=== PATIENT | female | born 2000 | race Hispanic/Latino ===

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

== ENCOUNTER 2019-11-10 12:51 | Emergency (ER) | payer MEDICAID ==
[2019-11-10] MEDS ORDERED: ACETAMINOPHEN EXTRA STRENGTH 500 MG TABLET ONE (13:16)
[2019-11-10] MEDS ORDERED: SODIUM CHLORIDE 0.9% 1000ML 1,000 ML IV ONE (13:17)
[2019-11-10] MEDS ORDERED: ONDANSETRON ODT 4 MG TAB ONE (13:32)
[2019-11-10 13:51] LABS: APPEARANCE,URINE CLEAR (CLEAR); BILIRUBIN,URINE NEGATIVE (NEGATIVE); COLOR,URINE YELLOW (YELLOW); GLUCOSE, URINE (UA) NEGATIVE (NEGATIVE); KETONES,URINE NEGATIVE (NEGATIVE); LEUKOCYTE ESTERASE ,URINE NEGATIVE (NEGATIVE); NITRATE,URINE NEGATIVE (NEGATIVE); OCCULT BLOOD,URINE NEGATIVE (NEGATIVE); PH,URINE 5.5 (5.0-8.0); PROTEIN,URINE TRACE mg/dL (NEGATIVE); UROBILINOGEN,URINE 0.2 mg/dL (0.2-1.0)
[2019-11-10 13:57] LABS: HCG,QUAL RESULT NEGATIVE (NEGATIVE)
[2019-11-10 14:57] LABS: BACTERIA,URINE Rare /HPF (None Seen); RBC,URINE None Seen /HPF (0-1); WBC,URINE 0-1 /HPF (0-1)
== END 2019-11-10 15:09 | disposition home or self-care (01) ==
LOC: EDH 12:51
DX: J11.1 Influenza due to unidentified influenza virus with other respiratory manifestations (principal)
CPT/HCPCS: 71046; 81001; 81025; 87804 ×2; 87880; 96360; 99285; J7030

== ENCOUNTER 2023-01-27 15:17 | Observation (INO) | payer MEDICAID ==
[~2023-01-27] VITALS: Ht 144.8 cm; Wt 75.3 kg
[2023-01-27 16:03] LABS: APPEARANCE,URINE CLEAR (CLEAR); BILIRUBIN,URINE NEGATIVE (NEGATIVE); COLOR,URINE YELLOW (YELLOW); GLUCOSE, URINE (UA) NEGATIVE (NEGATIVE); KETONES,URINE NEGATIVE (NEGATIVE); LEUKOCYTE ESTERASE ,URINE 75 Leu/uL (NEGATIVE); NITRATE,URINE NEGATIVE (NEGATIVE); OCCULT BLOOD,URINE NEGATIVE (NEGATIVE); PH,URINE 6.5 (5.0-8.0); PROTEIN,URINE 30 mg/dL (NEGATIVE)
[2023-01-27 16:08] VITALS: BP 105/62
[2023-01-27 16:11] LABS: BACTERIA,URINE RARE /HPF (None Seen); MUCUS,URINE FEW LPF (None Seen); SQUAMOUS EPITHELIAL CELL,UR MOD /HPF (0-2); WBC,URINE 0-1 /HPF (0-1)
== END 2023-01-27 17:40 | disposition home or self-care (01) ==
LOC: EDH 15:17 → LDH 15:18 → EDH 15:37
PROVIDERS: ADMIT Obstetrics & Gynecology; ATTEND Obstetrics & Gynecology
DX: O36.8330 Maternal care for abnormalities of the fetal heart rate or rhythm, third trimester, not applicable or unspecified (principal); Z3A.38 38 weeks gestation of pregnancy
CPT/HCPCS: 59025; 87088; 81001; 76819; 76805; G0378 ×2; G0379

== ENCOUNTER 2023-04-08 02:14 | Emergency (ER) | payer MEDICAID ==
[~2023-04-08] VITALS: Ht 149.9 cm; Wt 69.9 kg
[2023-04-08 03:41] LABS: APPEARANCE,URINE CLEAR (CLEAR); BILIRUBIN,URINE NEGATIVE (NEGATIVE); COLOR,URINE LIGHT-YELLOW (YELLOW); GLUCOSE, URINE (UA) NEGATIVE (NEGATIVE); KETONES,URINE NEGATIVE (NEGATIVE); LEUKOCYTE ESTERASE ,URINE 75 Leu/uL (NEGATIVE); NITRATE,URINE NEGATIVE (NEGATIVE); OCCULT BLOOD,URINE NEGATIVE (NEGATIVE); PH,URINE 7.5 (5.0-8.0); PROTEIN,URINE 20 mg/dL (NEGATIVE)
[2023-04-08 03:43] LABS: HCG,QUALITATIVE URINE NEGATIVE (NEGATIVE)
[2023-04-08 03:46] LABS: MUCUS,URINE RARE LPF (None Seen); SQUAMOUS EPITHELIAL CELL,UR RARE /HPF (0-2); WBC,URINE 51-100 /HPF (0-1)
[2023-04-08 04:33] LABS: BASOPHILS % (AUTO) 0.2 % (0.0-5.0); EOSINOPHILS % (AUTO) 0.5 % (0.0-8.0); HEMATOCRIT 37.4 % (36-48); LYMPHOCYTES % (AUTO) 14.3 % (21.0-51.0); MEAN CORPUSCULAR HEMOGLOBIN 24.7 pg (27.0-33.0); MEAN CORPUSCULAR VOLUME 79.7 fL (79-99); MONOCYTES % (AUTO) 6.6 % (3.0-13.0); NEUTROPHILS % (AUTO) 77.9 % (40.0-77.0); PLATELET COUNT (AUTO) 337 K/uL (130-400); RED BLOOD CELL COUNT(AUTO) 4.69 MIL/uL (4.00-5.50); RED CELL DISTRIBUTION WIDTH 15.6 % (11.0-15.5); WHITE BLOOD COUNT (AUTO) 13.1 K/uL (4.8-10.8)
[2023-04-08] MEDS ORDERED: CEFUROXIME AXETIL 250 MG TABLET PO STA (04:46)
[2023-04-08 04:51] LABS: CREATININE 0.7 mg/dL (0.5-1.5); POTASSIUM 3.6 mmol/L (3.5-5.1)
[2023-04-08 04:54] LABS: ALBUMIN 3.6 g/dL (3.5-5.0); TOTAL PROTEIN, SERUM 8.2 g/dL (6.0-8.3)
[2023-04-08] MEDS ORDERED: IBUPROFEN 800 MG TAB PO ONE (05:00)
[2023-04-08] MEDS ORDERED: 0.9%NACL 1000ML 2,000 ML IV ONE (05:00)
[2023-04-08] MEDS ORDERED: CEFTRIAXONE 1G VIAL IVPB ONE (05:00)
[2023-04-08 06:04] VITALS: BP 121/68
[2023-04-08] MEDS ORDERED: IBUP-1493 PO (06:36)
[2023-04-08] MEDS ORDERED: CEFU500T67 PO (06:36)
== END 2023-04-08 06:52 | disposition home or self-care (01) ==
LOC: EDH 02:14
DX: N39.0 Urinary tract infection, site not specified (principal)
CPT/HCPCS: 99285; 96365; 76705; 82150; 82550; 84484; 80053; 83690; 85025; 87077; 87088; 87186; 81001; 81025; 36415; J7030; J0696